=== PATIENT | male | born 1970 | race Caucasian/White ===

== ENCOUNTER 2017-08-04 09:13 | Emergency (ER) | payer OTHER ==
[2017-08-04 09:50] VITALS: BP 150/83; PULSE 82; TEMP 98.3; BMI 34.9
--- NOTE | 2017-08-04 10:11 | PDOC ---
History of Present Illness <Rosendo Leavittian - Last Filed: 08/04/17 10:19> - History of Present Illness Initial Comments: 08/04/17 10:04 "The patient is a 47 year old male, with no significant PMH, who presents to the emergency department with left arm pain. 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 The patient states the mask fell off and when he tried to catch it he felt a pop in his left upper arm. He subsequently felt a burning sensation and noticed swelling around his left upper arm. He states the left upper arm pain is exacerbated with movement and twisting of the elbow. The patient denies any falls, head strike/injury or loss of consciousness. The patient denies any hand or wrist pain. He denies any neck or back pain. He denies any numbness, weakness or tingling. The patient denies chest pain, shortness of breath, headache and dizziness. Denies fever, chills, nausea, vomit, diarrhea and constipation. Allergies: NKA " <Kamron Jerome - Last Filed: 08/04/17 12:21> - General Chief Complaint: Pain, Acute Stated Complaint: ARM INJURY Time Seen by Provider: 08/04/17 09:35 Past History <LeavittRosendoCarl - Last Filed: 08/04/17 10:19> - Past Medical History COPD: No Diabetes: Yes HTN: Yes Hypercholesterolemia: Yes - Suicide/Smoking/Psychosocial Hx Smoking History: Never smoked Have you smoked in the past 12 months: No Information on smoking cessation initiated: No Hx Alcohol Use: No Drug/Substance Use Hx: No Substance Use Type: None <Kamron Jerome - Last Filed: 08/04/17 12:21> - Past Medical History Allergies/Adverse Reactions: Allergies Allergy/AdvReac Type Severity Reaction Status Date / Time No Known Allergies Allergy Verified 08/04/17 09:31 Home Medications: Ambulatory Orders Unobtainable [Unobtainable] 08/04/17 Review of Systems - Review of Systems Comments:: 08/04/17 10:11 "GENERAL/CONSTITUTIONAL: No fever or chills. No weakness. HEAD, EYES, EARS, NOSE AND THROAT: No change in vision. No ear pain or discharge. No sore throat. CARDIOVASCULAR: No chest pain or shortness of breath. RESPIRATORY: No cough, wheezing, or hemoptysis. GASTROINTESTINAL: No nausea, vomiting, diarrhea or constipation. GENITOURINARY: No dysuria, frequency, or change in urination. MUSCULOSKELETAL: +Left upper arm pain. No neck or back pain. SKIN: No rash NEUROLOGIC: No headache, vertigo, loss of consciousness, or change in strength/ sensation. ENDOCRINE: No increased thirst. No abnormal weight change. HEMATOLOGIC/LYMPHATIC: No anemia, easy bleeding, or history of blood clots. ALLERGIC/IMMUNOLOGIC: No hives or skin allergy. " <Alia Jeromean - Last Filed: 08/04/17 12:21> *Physical Exam - Vital Signs Last Vital Signs Temp Pulse Resp BP Pulse Ox 98.3 F 82 18 150/83 100 08/04/17 09:15 08/04/17 09:15 08/04/17 09:15 08/04/17 09:15 08/04/17 09:15 <Carl Leavitt - Last Filed: 08/04/17 10:19> - Vital Signs Last Vital Signs Temp Pulse Resp BP Pulse Ox 98.3 F 82 18 150/83 100 08/04/17 09:15 08/04/17 09:15 08/04/17 09:15 08/04/17 09:15 08/04/17 09:15 - Physical Exam Comments: 08/04/17 10:11 "GENERAL: Awake, alert, and fully oriented, in no acute distress. HEAD: No signs of trauma EYES: PERRLA, EOMI, sclera anicteric, conjunctiva clear ENT: Auricles normal inspection, hearing grossly normal, nares patent, oropharynx clear without exudates. Moist mucosa NECK: Nontender, no stepoffs, Normal ROM, supple, no lymphadenopathy, JVD, or masses LUNGS: Breath sounds equal, clear to auscultation bilaterally. No wheezes, and no crackles HEART: Regular rate and rhythm, normal S1 and S2, no murmurs, rubs or gallops ABDOMEN: Soft, nontender, normoactive bowel sounds. No guarding, no rebound. No masses EXTREMITIES: + LUE with fullness of bicep, tenderness along anterior distal humerus and proximal ulna, diminished strength with supination and flexion of elbow, normal sensation and strength distally NEUROLOGICAL: Cranial nerves II through XII intact. 5/5 strength and sensation in all extremities, Normal speech, normal gait, normal cerebellar function SKIN: Warm, Dry, normal turgor, no rashes or lesions noted. " <Kamron Jerome - Last Filed: 08/04/17 12:21> ED Treatment Course - RADIOLOGY Radiology Studies Ordered: Category Date Time Status ELBOW-LEFT [RAD] Stat Radiology 08/04/17 09:42 Ordered HUMERUS-LEFT [RAD] Stat Radiology 08/04/17 09:42 Ordered <Kamron Jerome - Last Filed: 08/04/17 12:21> Medical Decision Making - Medical Decision Making 08/04/17 10:13 47 M with LUE pain and deformity after pulling and catching an object. Low suspicion for acute fx as mechanism is relatively mild. However, pt may have bicipital tendon tear/rupture. - XR L humerus and elbow - F/u ortho 08/04/17 12:21 XR negative on my read, pending radiology report Pt states he will see his orthopedist today. Pt is well appearing, with normal vitals. Clinically stable for DC at this time. I discussed the physical exam findings, ancillary test results and final diagnoses with the patient. I answered all of the patient's questions. The patient was satisfied with the care received and felt comfortable with the discharge plan and treatment plan. The patient agrees to follow up with the primary care physician within 24-72 hours. <Kamron Jerome - Last Filed: 08/04/17 12:21> *DC/Admit/Observation/Transfer - Attestations Scribe Attestion: 08/04/17 10:20 Documentation prepared by Carl Leavitt, acting as phlebotomist medical lab assistant for Kamron Jerome MD. <Carl Leavitt - Last Filed: 08/04/17 10:19> - Attestations Physician Attestion: 08/04/17 12:07 I, Dr. Kamron Jerome MD, attest that this document has been prepared under my direction and personally reviewed by me in its entirety. I further attest, that it accurately reflects all work, treatment, procedures and medical decision -making performed by me. <Kamron Jerome - Last Filed: 08/04/17 12:21> Diagnosis at time of Disposition: Biceps tendon tear - Discharge Dispostion Disposition: HOME - Referrals Referrals: Villatoro,Kamron, MD [Staff Physician] - - Patient Instructions Printed Discharge Instructions: DI for Tendinitis Additional Instructions: You likely have an injury to your biceps tendon. Keep your arm in the sling until you are able to see an orthopedic surgeon. You will need a MRI to further evaluate your injury. Call the number provided to make an appointment with our orthopedist if you do not have one already. Make an appointment within 1 week. If you experience worsening pain, swelling, numbness, or any other concerning symptoms, return to the ER immediately. - Post Discharge Activity Forms/Work/School Notes: Back to Work
== END 2017-08-04 12:25 | disposition home or self-care (01) ==
LOC: JER 09:13
DX: S46.212A Strain of muscle, fascia and tendon of other parts of biceps, left arm, initial encounter (principal); X50.0XXA Overexertion from strenuous movement or load, initial encounter; Y93.89 Activity, other specified; Y92.89 Other specified places as the place of occurrence of the external cause; Y99.0 Civilian activity done for income or pay
CPT/HCPCS: 73060-TC-LT-FY; 73070-TC-LT-FY; 99283-25

== ENCOUNTER 2018-05-04 04:17 | Inpatient (IN) | payer BC, OTHER ==
[2018-05-04 04:34] VITALS: BMI 44.9
[2018-05-04] MEDS ORDERED: ASPIRIN 81 MG CHEWABLE TABLETS PO ONE (05:20)
[2018-05-04] MEDS ORDERED: ASPIRIN 81 MG CHEWABLE TABLETS ONE ×2 (05:31→13:06)
--- NOTE | 2018-05-04 05:35 | PDOC ---
History of Present Illness - General Chief Complaint: Chest Pain Stated Complaint: CHEST DISCOMFORT Time Seen by Provider: 05/04/18 05:30 History Source: Patient Exam Limitations: No Limitations Past History - Past Medical History Allergies/Adverse Reactions: Allergies Allergy/AdvReac Type Severity Reaction Status Date / Time No Known Allergies Allergy Verified 05/04/18 04:35 Home Medications: Ambulatory Orders Cholecalciferol (Vitamin D3) [Vitamin D3 -] 400 unit PO DAILY 05/04/18 [place]-3 Fatty Acids/Fish Oil [Fish Oil 1,000 mg Capsule] 1 each PO DAILY COPD: No Diabetes: Yes HTN: Yes Hypercholesterolemia: Yes - Suicide/Smoking/Psychosocial Hx Smoking History: Never smoked Have you smoked in the past 12 months: No Information on smoking cessation initiated: No Hx Alcohol Use: Yes (occasional) Drug/Substance Use Hx: No Substance Use Type: None *Physical Exam - Vital Signs Last Vital Signs Temp Pulse Resp BP Pulse Ox 97.7 F 91 H 18 147/81 97 05/04/18 04:17 05/04/18 04:17 05/04/18 04:17 05/04/18 04:17 05/04/18 04:17 Moderate Sedation - Procedure Monitoring Vital Signs: Procedure Monitoring Vital Signs Temperature 97.7 F 05/04/18 04:17 Pulse Rate 91 H 05/04/18 04:17 Respiratory Rate 18 05/04/18 04:17 Blood Pressure 147/81 05/04/18 04:17 O2 Sat by Pulse Oximetry (%) 97 05/04/18 04:17 ED Treatment Course - LABORATORY CBC & Chemistry Diagram: 05/04/18 05:29 05/04/18 05:29 Medical Decision Making - Medical Decision Making Pt was seen at bedside, also will be seen by attending Dr. Sullivan. Pt presenting with Vitals stable, pt afebrile. PE showed pt alert and oriented. timber spotter generally intact, muscular strength and sensation intact. Clear heart and lung sounds, no JVD, b/l pedal edema, or heart murmur. No abdominal or CVA tenderness to palpation, no rebound, no guarding. Considering ACS vs angina vs atypical chest pain Ordered work-up including CBC, CMP, cardiac profile, Mg, ECG, chest x-ray. Provided 160 mg PO aspirin for coagulation control. Will continue to reassess pt and monitor for symptomatic improvement. 05/04/18 05:48 *DC/Admit/Observation/Transfer - Discharge Dispostion Condition at time of disposition: Fair - Referrals - Patient Instructions - Post Discharge Activity
--- NOTE | 2018-05-04 05:46 | PDOC ---
Attending Attestation - Resident Resident Name: Alicja Altamirano - ED Attending Attestation I have performed the following: I have examined & evaluated the patient, The case was reviewed & discussed with the resident, I agree w/resident's findings & plan - HPI HPI: 05/04/18 06:35 [id number] male presents to the emergency department complaining of sudden onset of chest pressure that woke him from sleep around 1 AM and has persisted He denies radiation to the back, there is no associated nausea vomiting diaphoresis abdominal pain or fever. He states that he has had cardiology workups in the past that were within normal limits to the best of his knowledge. - Physicial Exam PE: 05/04/18 06:35 GENERAL: Awake, in no acute distress HEAD: No signs of trauma EYES: ENT:clear without exudates. Moist mucosa NECK: Normal ROM, LUNGS:. Normal work of breathing. HEART: Regular rate and rhythm, ABDOMEN: Soft, nondistended CHEST WALL: BACK: No midline tenderness. EXTREMITIES:. No erythema, or tenderness NEUROLOGICAL: Alert, SKIN: Warm, Dry - Medical Decision Making 05/04/18 06:35 48-year-old male with chest pressure EKG shows a sinus rhythm at 91 bpm with no acute ST elevations There is an isolated PVC There is no old readily available for comparison Plan is for aspirin, nitroglycerin sublingual and reevaluation with admission to medical service for serial enzymes Impression chest pain
[2018-05-04 05:52] LABS: BASO % 0.5 % (0-2.0); EOS % 1.4 % (0-4.5); HEMATOCRIT 42.2 % (35.4-49); HEMOGLOBIN 14.5 GM/dL (11.7-16.9); LYMPH % 25.9 % (8-40); MCH 30.4 pg (25.7-33.7); MCHC 34.5 g/dl (32.0-35.9); MEAN CELL VOLUME 88.2 fl (80-96); MEAN PLT VOLUME 8.3 fl (7.5-11.1); MONO % 7.1 % (3.8-10.2); NEUT % 65.1 % (42.8-82.8); PLATELET COUNT 228 K/MM3 (134-434); RBC 4.78 M/mm3 (4.00-5.60); RDW 15.2 % (11.9-15.9); WHITE BLOOD COUNT 4.8 K/mm3 (4.0-10.0)
[2018-05-04 06:00] LABS: INR 1.02 (0.83-1.09)
[2018-05-04] MEDS ORDERED: NITROGLYCERIN SUBLINGUAL 1/150 0.4 MG TAB SL ONE (06:07)
[2018-05-04 06:23] LABS: ALBUMIN 3.8 g/dl (3.4-5.0); ALK PHOS 123 U/L (45-117); ANION GAP 12 MMOL/L (8-16); BILIRUBIN,TOTAL 0.3 mg/dL (0.2-1); BLOOD UREA NITROGEN 8 mg/dL (7-18); CALCIUM 8.7 mg/dL (8.5-10.1); CHLORIDE 108 mmol/L (98-107); CO2 25 mmol/L (21-32); CREATININE 0.6 mg/dL (0.55-1.3); GLUCOSE,RANDOM 132 mg/dL (74-106); MAGNESIUM 2.1 mg/dL (1.8-2.4); POTASSIUM 3.7 mmol/L (3.5-5.1); SGOT/AST 37 U/L (15-37); SGPT/ALT 76 U/L (13-61); SODIUM 145 mmol/L (136-145); TOT PROT 6.8 g/dl (6.4-8.2)
[2018-05-04] MEDS ORDERED: NITROGLYCERIN SUBLINGUAL 1/150 0.4 MG TAB ONE (06:24)
--- NOTE | 2018-05-04 07:15 | PDOC ---
*Physical Exam - Vital Signs Last Vital Signs Temp Pulse Resp BP Pulse Ox 98.5 F 88 19 135/78 100 05/04/18 06:48 05/04/18 06:48 05/04/18 06:48 05/04/18 06:48 05/04/18 06:48 - Physical Exam Comments: Patient was signed out to me by Dr. Altamirano. At the time of sign out, the patient 's case was awaiting call back for admission. Patient was admitted to [facility] by Dr. Gonzalez. ED Treatment Course - LABORATORY CBC & Chemistry Diagram: 05/04/18 05:29 05/04/18 05:29 - ADDITIONAL ORDERS Additional order review: Laboratory Results 05/04/18 05/04/18 05:29 05:29 PT with INR 12.00 INR 1.02 Sodium 145 Potassium 3.7 Chloride 108 H Carbon Dioxide 25 Anion Gap 12 BUN 8 Creatinine 0.6 Creat Clearance w eGFR > 60 Random Glucose 132 H Calcium 8.7 Magnesium 2.1 Total Bilirubin 0.3 AST 37 ALT 76 H Alkaline Phosphatase 123 H Creatine Kinase 90 Troponin I < 0.02 Total Protein 6.8 Albumin 3.8 05/04/18 05:29 RBC 4.78 MCV 88.2 MCHC 34.5 RDW 15.2 MPV 8.3 Neutrophils % 65.1 Lymphocytes % 25.9 D Monocytes % 7.1 Eosinophils % 1.4 Basophils % 0.5 D - Medications Given in the ED: ED Medications Discontinued Medications Generic Name Dose Route Start Last Admin Trade Name Freq PRN Reason Stop Dose Admin Aspirin 162 mg 05/04/18 05:20 05/04/18 05:33 Asa - PO 05/04/18 05:21 162 mg ONCE ONE Administration Nitroglycerin 0.4 mg 05/04/18 06:07 05/04/18 06:29 Nitrostat - SL 05/04/18 06:08 0.4 mg ONCE ONE Administration *DC/Admit/Observation/Transfer Diagnosis at time of Disposition: Chest pain Qualifiers: Chest pain type: unspecified Qualified Code(s): R07.9 - Chest pain, unspecified - Discharge Dispostion Disposition: HOME Condition at time of disposition: Good - Prescriptions - Referrals - Patient Instructions - Post Discharge Activity
--- NOTE | 2018-05-04 09:24 | HP ---
Admitting History and Physical - Admission History of Present Illness: 48-year-old male with chest pressure EKG shows a sinus rhythm at 91 bpm with no acute ST elevations There is an isolated PVC Now pain has resolved - Past Medical History Cardiovascular: Yes: Hyperlipdemia. No: AFIB, CHF, HTN, [place] Pulmonary: No: Asthma, COPD Heme/Onc: No: Anemia - Smoking History Smoking history: Never smoked Have you smoked in the past 12 months: No - Alcohol/Substance Use Hx Alcohol Use: Yes (occasional) Home Medications - Allergies Allergies/Adverse Reactions: Allergies Allergy/AdvReac Type Severity Reaction Status Date / Time No Known Allergies Allergy Verified 05/04/18 04:35 - Home Medications Home Medications: Ambulatory Orders Cholecalciferol (Vitamin D3) [Vitamin D3 -] 400 unit PO DAILY 05/04/18 [place]-3 Fatty Acids/Fish Oil [Fish Oil 1,000 mg Capsule] 1 each PO DAILY Review of Systems - Review of Systems Neck: reports: No Symptoms Cardiovascular: reports: Chest Pain. denies: Palpitations Respiratory: reports: No Symptoms Gastrointestinal: reports: No Symptoms Physical Examination Vital Signs: Vital Signs Temperature 98.5 F 05/04/18 06:48 Pulse Rate 88 05/04/18 06:48 Respiratory Rate 19 05/04/18 06:48 Blood Pressure 135/78 05/04/18 06:48 O2 Sat by Pulse Oximetry (%) 100 05/04/18 06:48 Cardiovascular: Yes: Regular Rate and Rhythm Respiratory: Yes: Regular, CTA Bilaterally Gastrointestinal: Yes: Normal Bowel Sounds, Soft. No: Tenderness Edema: No Integumentary: Yes: Venous Stasis Changes Labs: CBC, BMP 05/04/18 05:29 05/04/18 05:29 Problem List - Problems (1) Chest pain Assessment/Plan: had echo--reported as normal--will obtain results stress test cardio asa Code(s): R07.9 - CHEST PAIN, UNSPECIFIED (2) HLD (hyperlipidemia) Assessment/Plan: -lipid profile -start statin Code(s): E78.5 - HYPERLIPIDEMIA, UNSPECIFIED (3) Obesity Code(s): E66.9 - OBESITY, UNSPECIFIED
[2018-05-04] MEDS ORDERED: ASPIRIN COATED 81 MG TABLET.EC PO SCH (10:00)
--- NOTE | 2018-05-04 10:18 | CON.CARD ---
Consult Consult Specialty:: Cardiology Referred by:: Dr. Gonzalez Reason for Consultation:: Chest pain - History of Present Illness Chief Complaint: chest pain History of Present Illness: 48 year old man with no known pmh admitted with chest pain. pt seen and examined in the ER in [place]. states the chest pain woke him from his sleep last night, has reduced in intensity but is still present. never had this pain before but did have chest pain in the past approx 4-5 years ago and had an echo , holter, and stress test at that time with Dr. Vyas that he states was normal. Recently he began seeing Dr. Brasher and states that 2 weeks ago he had an echo in the office with the nail specialist there and he believes it was normal. denies sob, palpitations, pnd, orthopnea, le edema. - History Source History Provided By: Patient, Medical Record Limitations to Obtaining History: No Limitations - Alcohol/Substance Use Hx Alcohol Use: Yes (occasional) - Smoking History Smoking history: Never smoked Have you smoked in the past 12 months: No Home Medications - Allergies Allergies/Adverse Reactions: Allergies Allergy/AdvReac Type Severity Reaction Status Date / Time No Known Allergies Allergy Verified 05/04/18 04:35 - Home Medications Home Medications: Ambulatory Orders Cholecalciferol (Vitamin D3) [Vitamin D3 -] 400 unit PO DAILY 05/04/18 [place]-3 Fatty Acids/Fish Oil [Fish Oil 1,000 mg Capsule] 1 each PO DAILY Family Disease History - Family Disease History Family History: Denies Review of Systems - Review of Systems Constitutional: denies: No Symptoms, Chills, Diaphoresis, Fever, Lethargy, Loss of Appetite, Malaise, Night Sweats, Unintentional Wgt. Loss, Weakness, Other Eyes: denies: No Symptoms, Blind Spots, Blurred Vision, Double Vision, Eye Pain , Floaters, Photophobia, Recent Change in Vision, Other HENT: denies: No Symptoms, Difficult Swallowing, Ear Discharge, Ear Pain, Epistaxis, Gingival Bleeding, Hearing Loss, Mouth Swelling, Nasal Congestion, Ocular Prosthesis, Throat Pain, Toothache, Ringing in Ears, Other Neck: denies: No Symptoms, Decreased ROM, Lumps, Pain on Movement, Stiffness, Swollen Glands, Tenderness, Other Cardiovascular: reports: Chest Pain. denies: No Symptoms, Edema, Palpitations, Shortness of Breath, Other Respiratory: denies: No Symptoms, Cough, Exercise Intolerance, Hemoptysis, Orthopnea, PND, Snoring, SOB, SOB on Exertion, Wheezing, Other Gastrointestinal: denies: No Symptoms, Abdominal Pain, Bloating, Constipation, Diarrhea, Dysphagia, Indigestion, Melena, Nausea, Rectal Bleeding, Vomiting, Vomiting Blood, Other Genitourinary: denies: No Symptoms, Burning, Discharge, Dysuria, Flank Pain, Frequency, Hematuria, Incontinence, Lesions, Menses, Pain, Testicular Mass, Testicular Pain, Testicular Swelling, Urgency, Vaginal Bleeding, Other Musculoskeletal: denies: No Symptoms, Back Pain, Crepitus, Decreased ROM, Extremity Pain, Joint Pain, Joint Swelling, Muscle Pain, Muscle Cramps, Muscle Weakness, Other Integumentary: denies: No Symptoms, Blister, Bruising, Change in Color, Eczema, Erythema, Incision, Lesions, Lump, Pallor, Pruritis, Rash, Wound, Other Neurological: denies: No Symptoms, Change in LOC, Change in Speech, Confusion, Dizziness, Headache, Incoordination, Numbness, Parasthesia, Pre-Existing Deficit , Seizure, Syncope, Tremors, Unsteady Gait, Weakness, Other Endocrine: denies: No Symptoms, Excessive Sweating, Flushing, Increased Hunger, Increased Thirst, Intolerance to Cold, Intolerance to Heat, Unexplained Weight Gain, Unexplained Weight Loss, Other Hematology/Lymphatic: denies: No Symptoms, Easily Bruised, Excessive Bleeding, Swollen Glands, Other Psychiatric: denies: No Symptoms, Altered Sleep Pattern, Anxiety, Depression, Hallucinations, Panic, Paranoia, Suicidal, Other Vital Signs: Vital Signs Temperature 98.5 F 05/04/18 06:48 Pulse Rate 88 05/04/18 06:48 Respiratory Rate 05/04/18 06:48 Blood Pressure 135/78 05/04/18 06:48 O2 Sat by Pulse Oximetry (%) 100 05/04/18 06:48 Constitutional: Yes: No Distress, Calm, Obese Eyes: Yes: Conjunctiva Clear, EOM Intact HENT: Yes: Atraumatic, Normocephalic Neck: Yes: Supple, Trachea Midline Respiratory: Yes: Regular, CTA Bilaterally. No: Rales, Rhonchi, Wheezes Gastrointestinal: Yes: Normal Bowel Sounds, Soft. No: Distention, Tenderness Cardiovascular: Yes: Regular Rate and Rhythm. No: Bradycardia, Tachycardia, Pulse Irregular, Gallop, Rub, Varicosities JVD: No Carotid Bruit: No PMI: Non-Displaced Heart Sounds: Yes: S1, S2. No: Split S2, S3, S4, Clicks, Gallop, Rub, Bruit Murmur: No: Systolic Murmur, Diastolic Murmur Musculoskeletal: Yes: WNL Extremities: Yes: WNL Edema: No Peripheral Pulses WNL: Yes Peripheral Pulses: 2+ Left Doralis Pedis, 2+ Right Dorsalis Pedis Neurological: Yes: Alert, Oriented Psychiatric: Yes: Alert, Oriented - Other Data Labs, Other Data: CBC, BMP 05/04/18 05:29 05/04/18 05:29 INR, PTT INR 1.02 (0.83-1.09) 05/04/18 05:29 Troponin, BNP 05/04/18 05:29 Troponin I < 0.02 Troponin, BNP 05/04/18 05:29 Troponin I < 0.02 nsr pvc, no sig st abnl Imaging - Results Chest X-ray: Report Reviewed, Image Reviewed EKG: Report Reviewed, Image Reviewed Other: Report Reviewed, Image Reviewed Assessment/Plan 48 year old man with no known pmh admitted with chest pain. pt seen and examined in the ER in [place]. states the chest pain woke him from his sleep last night, has reduced in intensity but is still present. never had this pain before but did have chest pain in the past approx 4-5 years ago and had an echo , holter, and stress test at that time with Dr. Vyas that he states was normal. Recently he began seeing Dr. Brasher and states that 2 weeks ago he had an echo in the office with the nail specialist there and he believes it was normal. denies sob, palpitations, pnd, orthopnea, le edema. Chest pain-atypical -unlikely ACS -cardiac enzymes x 1 wnl -ekg no ischemia -echo was done [address] Brasher's office, please obtain report -2nd set of cardiac enzymes pending -nuclear stress test ordered for today, fup results, if no sig ischemia pt can be discharged from cardiac standpoint with plan for outpatient fup.
[2018-05-04 10:47] LABS: CHOLESTEROL 149 mg/dL (50-200); HDL CHOLESTEROL 25 mg/dL (40-60); TRIGLYCERIDES 416 mg/dL (0-150)
[2018-05-04] MEDS ORDERED: REGADENOSON 0.4 MG/5 ML PRE-FILLED SYRINGE IVPUSH ONE ×2 (11:10→11:15)
--- NOTE | 2018-05-04 16:16 | EKG ---
Test Reason : Blood Pressure : / mmHG Vent. Rate : 093 BPM Atrial Rate : 093 BPM P-R Int : 208 ms QRS Dur : 096 ms QT Int : 336 ms P-R-T Axes : 060 061 013 degrees QTc Int : 417 ms NORMAL SINUS RHYTHM with first degree AV block NONSPECIFIC ST ABNORMALITY ABNORMAL ECG Confirmed by MD EDGARDO, SELIN ([id number]) on 05/04/2018 4:16:02 PM Referred By: Hilda ASH Confirmed By:SELIN REYNOSO MD
--- NOTE | 2018-05-04 16:28 | EKG ---
Test Reason : Blood Pressure : / mmHG Vent. Rate : 091 BPM Atrial Rate : 091 BPM P-R Int : 212 ms QRS Dur : 098 ms QT Int : 350 ms P-R-T Axes : 057 052 -19 degrees QTc Int : 430 ms SINUS RHYTHM WITH 1ST DEGREE A-V BLOCK WITH OCCASIONAL PREMATURE VENTRICULAR COMPLEXES NONSPECIFIC T WAVE ABNORMALITY ABNORMAL ECG Confirmed by MD EDGARDO, SELIN ([id number]) on 05/04/2018 4:27:37 PM Referred By: Confirmed By:SELIN REYNOSO MD
--- NOTE | 2018-05-04 16:38 | DS ---
Physical Examination Vital Signs: Vital Signs Temperature 98.5 F 05/04/18 06:48 Pulse Rate 88 05/04/18 06:48 Respiratory Rate 19 05/04/18 06:48 Blood Pressure 135/78 05/04/18 06:48 O2 Sat by Pulse Oximetry (%) 99 05/04/18 07:30 Findings/Remarks: STRESS NUCLEAR NEGATIVE FOR ISCHEMIA Constitutional: Yes: No Distress Labs: CBC, BMP 05/04/18 05:29 05/04/18 05:29 Discharge Summary Reason For Visit: CHEST PAIN Current Active Problems Chest pain (Acute) HLD (hyperlipidemia) (Acute) Obesity (Acute) Hospital Course: NUCLEAR TEST NORMAL Condition: Good - Instructions Diet, Activity, Other Instructions: SEE DR FERRARI IN 1-2 WEEKS PROAIR INH NEEDED NITROSTAT NEEDED RETURN TO ER OR CALL 911 IF PAIN WORSENS Disposition: HOME - Home Medications Comprehensive Discharge Medication List: Ambulatory Orders Albuterol Sulfate [Proair Hfa] 8.5 gm IH QID #1 [id number] 05/04/18 Aspirin Coated [Ecotrin -] 81 mg PO DAILY tablet.ec 05/04/18 Cholecalciferol (Vitamin D3) [Vitamin D -] 400 unit PO DAILY 05/04/18 Nitroglycerin [Nitrostat] 0.4 mg SL [id number] #[id number] tab.subl 05/04/18 [place]-3 Fatty Acids/Fish Oil [Fish Oil 1,000 mg Capsule] 1 each PO DAILY
[2018-05-04 17:00] VITALS: BP 160/88; PULSE 95; TEMP 98
[2018-05-04] MEDS ORDERED: ATORVASTATIN CA 20 MG TABLET (FP) PO SCH (22:00)
== END 2018-05-04 17:01 | disposition home or self-care (01) | DRG 313 ==
LOC: JER 04:17 → JERBED 08:25 → OBSVTOIN 09:25
PROVIDERS: ADMIT Family Medicine; ATTEND Family Medicine
DX: R07.89 Other chest pain (principal); Z68.41 Body mass index [BMI] 40.0-44.9, adult; E78.5 Hyperlipidemia, unspecified; E66.9 Obesity, unspecified
CPT/HCPCS: 36415; 71046-TC-FY; 78452-TC; 80053; 80061; 82550; 83036; 83721; 83735; 84484; 85025; 85610; 93005; 93010; 93017; 99285-25; A9502; G0378; J2785

== ENCOUNTER 2023-09-21 04:11 | Day surgery (SDC) | payer BC ==
[2023-09-11 13:15] VITALS: BMI 28.2
[2023-09-21] MEDS ORDERED: LIDOCAINE HCL 1%, 10 MG/ML (20ML VIAL) ONE (14:14)
[2023-09-21] MEDS ORDERED: BUPIVACAINE HCL/PF 0.5% (5MG/ML) 10 ML VIAL ONE (14:14)
[2023-09-21] MEDS ORDERED: MIDAZOLAM HCL 2 MG/2 ML SINGLE DOSE VIAL ONE (14:57)
[2023-09-21] MEDS ORDERED: FENTANYL CITRATE/PF 50 MCG/ML VIAL ONE ×2 (14:57→15:13)
[2023-09-21] MEDS ORDERED: PROPOFOL 20 ML ONE (15:04)
[2023-09-21] MEDS: ceFAZolin SODIUM 1 GM VIAL IVPB ONE (15:05)
[2023-09-21] MEDS: LIDOCAINE 1% P/F 10 MG/ML VIAL INF ONE ×2 (15:06)
[2023-09-21] MEDS: BUPIVACAINE HCL/PF 0.5% (5MG/ML) 10 ML VIAL IJ ONE ×2 (15:07)
[2023-09-21 16:19] VITALS: RESP 16; TEMP 97.5
[2023-09-21 16:21] VITALS: BP 125/70; PULSE 64
== END 2023-09-21 16:25 | disposition home or self-care (01) ==
LOC: JASU-SURG 04:11
PROVIDERS: ATTEND Urology
PROC: 0VBQ0ZZ Excision of Bilateral Vas Deferens, Open Approach (ICD-10-PCS; principal; 2023-09-21 14:00)
DX: Z30.2 Encounter for sterilization (principal)
CPT/HCPCS: 82962; 88302-TC